=== PATIENT | male | born 1990 | race Two or more races ===

== ENCOUNTER 2018-07-12 16:17 | Emergency (ER) | payer SELFPAY ==
[~2018-07-12] VITALS: Ht 180.3 cm; Wt 86.2 kg
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
--- NOTE | 2018-07-12 16:58 | NUR ---
WHEELED OUT VIA RNEY FOR CT SCAN
[2018-07-12] MEDS ORDERED: LIDOCAINE 1%-EPI 1:100,000 50 ML VIAL IJ ONE (17:00)
[2018-07-12] MEDS ORDERED: TDAP [DIPH/PERTUSSIS/TET] 0.5 ML VIAL IM ONE ×2 (17:00→17:01)
[2018-07-12] MEDS ORDERED: LIDOCAINE 1%-EPI 1:100,000 20 ML VIAL ONE (17:01)
--- NOTE | 2018-07-12 17:16 | NUR ---
SUPERVISOR TILE AND MOTTLE DEGRASSE AT BEDSIDE FOR SUTURING
--- NOTE | 2018-07-12 17:49 | NUR ---
Patient discharged to home in stable condition. Written and verbal after care instructions given. Patient verbalizes understanding of instruction.
[2018-07-12 17:54] VITALS: BP 130/80
== END 2018-07-12 17:55 | disposition home or self-care (01) ==
LOC: ER 16:18
DX: S01.01XA Laceration without foreign body of scalp, initial encounter (principal); F12.90 Cannabis use, unspecified, uncomplicated; V00.131A Fall from skateboard, initial encounter; Y93.51 Activity, roller skating (inline) and skateboarding; Y92.331 Roller skating rink as the place of occurrence of the external cause; Y99.8 Other external cause status
CPT/HCPCS: 12002; 70450; 90471; 90715; 99284; A6402 ×2; A6403 ×2; J3490 ×2

== ENCOUNTER 2018-07-14 10:33 | Emergency (ER) | payer SELFPAY ==
[~2018-07-14] VITALS: Ht 180.3 cm; Wt 81.6 kg
[2018-07-14 10:33] VITALS: BP 102/62
--- NOTE | 2018-07-14 11:20 | NUR ---
Patient eloped from facility. ER [facility].
== END 2018-07-14 11:25 | disposition left against medical advice (07) ==
LOC: ER 10:34
DX: Z53.21 Procedure and treatment not carried out due to patient leaving prior to being seen by health care provider (principal)